=== PATIENT | female | born 1950 | race Hispanic/Latino ===

== ENCOUNTER 2017-05-15 06:50 | Day surgery (SDC) | payer MEDICARE ==
[2017-05-15 07:31] VITALS: BMI 32.5
[2017-05-15] MEDS ORDERED: Propofol 10 mg/ml Inj (20 ML) ONE (08:40)
[2017-05-15] MEDS ORDERED: Lactated Ringer's 500 ML IV ONE ×2 (08:50)
--- NOTE | 2017-05-15 08:50 | CP.SDSHP ---
Same Day Surgery H & P - History Proposed Procedure: COLONSCOPY Pre-Op Diagnosis: SEE NOTES - Previous Medical/Surgical History Cardiac: Hypertension Neuro: Other Misc: Other Pain: 4.Moderate Pain - Allergies Allergies: Allergies No Known Allergies Allergy (Verified 05/15/17 07:23) - Physical Exam General Appearance: N Vital Signs: Vital Signs 05/15/17 05/15/17 07:33 07:44 Temperature 97.3 F L Pulse Rate 50 L 50 L Respiratory 19 Rate Blood Pressure 126/64 O2 Sat by Pulse 98 Oximetry Mental Status: Alert & Oriented x3 Neuro: WNL Heart: Other Lungs: WNL GI: Other - {Optional Preform as Required} Breast: WNL Abdomen: Other Rectal: Other Integument: WNL : WNL Ortho: Other ENT: WNL - Impression Pt. Evaluated Today:Candidate for Anesthesia & Procedure: Yes - Date & Time Time: 08:50 Short Stay Discharge - Short Stay Discharge Admitting Diagnosis/Reason for Visit: RECTAL BLEEDING Disposition: HOME/ ROUTINE
[2017-05-15] MEDS ORDERED: Belladonna-Phenobarbital PO STA (08:52)
[2017-05-15 09:37] VITALS: TEMP 97.8
[2017-05-15 10:27] VITALS: BP 106/53; PULSE 50; RESP 14; O2SAT 99
== END 2017-05-15 10:23 | disposition home or self-care (01) ==
LOC: C.ENDO 06:50
PROVIDERS: ATTEND Specialist
DX: K58.9 Irritable bowel syndrome, unspecified (principal); K64.8 Other hemorrhoids; I10 Essential (primary) hypertension
CPT/HCPCS: 45380; 88305; J2704; J7120